=== PATIENT | male | born 1975 | race Caucasian/White ===

== ENCOUNTER 2021-04-07 20:14 | Emergency (ER) | payer OTHER ==
[2021-04-07 20:25] VITALS: BP 146/91
[2021-04-07] MEDS ORDERED: LIDOCAINE 1% 2 ML VIAL SUBQ STA (20:29)
--- NOTE | 2021-04-07 20:33 | ED Physician Documentation ---
PD HPI UPPER EXT INJURY - Stated complaint Stated Complaint: LT FINGER LAC - Chief complaint Chief Complaint: Laceration - History obtained from History obtained from: Patient - History of Present Illness Location: Left Type of injury: Laceration Pain level max: 2 Pain level now: 1 Improved by: Rest, Dressing (pressure) Worsened by: Moving Associated symptoms: No: Weakness, Numbness, Tingling, Swelling Recently seen: Not recently seen - Additonal information Additional information: 46-year-old male presents to the emergency department with a left index finger laceration. This occurred at home while washing dishes, a knife slipped and cut him in the left index finger. Tetanus is up-to-date. Patient is right-handed. Review of Systems Constitutional: denies: Fever PD PAST MEDICAL HISTORY - Past Medical History Past Medical History: No - Present Medications Home Medications: Ambulatory Orders Medication Instructions Recorded Confirmed Citalopram [CeleXA] 10 mg PO DAILY 04/07/21 04/07/21 amLODIPine [Norvasc] 5 mg PO DAILY PM 04/07/21 04/07/21 - Allergies Allergies/Adverse Reactions: Allergies Allergy/AdvReac Type Severity Reaction Status Date / Time No Known Drug Allergies Allergy Verified 04/07/21 20:25 PD ED PE NORMAL - Vitals Vital signs reviewed: Yes - General General: Alert and oriented X 3, No acute distress - Derm Derm: Warm and dry - Neuro Neuro: Alert and oriented X 3 PD ED PE EXPANDED - Extremities IGNACIA UE/Hands Visual: 1 - laceration (1cm, into fat. NVI. tendon intact, tested vs resistance) Results - Vitals Vitals: Vital Signs - 24 hr 04/07/21 20:21 Temperature 36.8 C Heart Rate 75 Respiratory 16 Rate Blood Pressure 146/91 H O2 Saturation 96 Oxygen O2 Source Room air Procedures - Laceration (location) L index finger Length in cm: 1 Wound type: Linear Neurovascular status: Sensory intact, Motor intact, Vascular intact Tendon involvement: Tendon intact (tested vs resistance) Anesthesia: Lidocaine 1% Wound preparation: Irrigated copiously NS Deep layer closure: # sutures - enter number (2) Skin layer closure: Nylon, Interrupted Other: Patient tolerated well, No complications, Neurovascular intact, Tetanus UTD PD MEDICAL DECISION MAKING - ED course Complexity details: considered differential, d/w patient ED course: 46-year-old male presents to the emergency department with left index finger laceration. This was repaired. Tolerated well. Tetanus up-to-date. Neurovascularly intact. Tendon intact. Patient counseled regarding signs and symptoms for which I believe and urgent re-evaluation would be necessary. Patient with good understanding of and agreement to plan and is comfortable going home at this time This document was made in part using voice recognition software. While efforts are made to proofread this document, sound alike and grammatical errors may occur. Departure - Departure Disposition: 01 Home, Self Care Clinical Impression: Finger laceration Qualifiers: Encounter type: initial encounter Finger: index finger Damage to nail status: without damage Foreign body presence: without foreign body Laterality: left Qualified Code(s): S61.211A - Laceration without foreign body of left index finger without damage to nail, initial encounter Condition: Good Instructions: ED Laceration Hand Follow-Up: SIS DUNCAN PA-C [Primary Care Provider] - Comments: Follow-up with your primary care provider in about 10 days for suture removal. Return if you notice redness, swelling or drainage from the room. Return if you worsen. Keep the wound clean Discharge Date/Time: 04/07/21 20:53
[2021-04-07] MEDS ORDERED: BACITRACIN ZINC OINT 1 PACKET TOP STA (20:47)
== END 2021-04-07 20:53 | disposition home or self-care (01) ==
LOC: ED 20:14
DX: S61.211A Laceration without foreign body of left index finger without damage to nail, initial encounter (principal); W26.0XXA Contact with knife, initial encounter; Y93.G1 Activity, food preparation and clean up; Y92.009 Unspecified place in unspecified non-institutional (private) residence as the place of occurrence of the external cause
CPT/HCPCS: 12041; 99281; 99282

== ENCOUNTER 2022-06-23 10:33 | Emergency (ER) | payer OTHER ==
--- NOTE | 2022-06-23 11:32 | ED Physician Documentation ---
PD HPI BACK PAIN - Stated complaint Stated Complaint: BACK PX - Chief complaint Chief Complaint: Trauma Ch/Bk - History obtained from History obtained from: Patient - History of Present Illness Timing - onset: How many days ago (3) Timing - duration: Days (3) Timing - details: Abrupt onset, Still present (he fell about 5 feet onto flat back, with pain thoraicic ribs. Was painful with movement, then had an abrupt severe pain with coughing today.) Location: Lower, Right Quality: Pain, Spasm, Sharp Associated symptoms: No: Fever, Weakness, Numbness Improves with: Rest Worsened by: Movement, Twisting Contributing factors: Trauma (fell onto flat back from about 5 feet.) Similar symptoms before: Has not had sx before Recently seen: Not recently seen Review of Systems Constitutional: denies: Fever, Chills Nose: denies: Rhinorrhea / runny nose, Congestion Throat: denies: Sore throat Cardiac: reports: Chest pain / pressure. denies: Palpitations Respiratory: denies: Dyspnea, Cough GI: denies: Abdominal Pain Musculoskeletal: denies: Neck pain Neurologic: denies: Altered mental status, Headache, Head injury PD PAST MEDICAL HISTORY - Past Medical History Past Medical History: Yes Cardiovascular: Hypertension Respiratory: None Neuro: None Endocrine/Autoimmune: None GI: None : None HEENT: None Psych: Post traumatic stress disorder Musculoskeletal: None Derm: None - Past Surgical History Past Surgical History: Yes Ortho: Arthroscopic surgery Derm: Other - Present Medications Home Medications: Ambulatory Orders Medication Instructions Recorded Confirmed amLODIPine [Norvasc] 5 mg PO DAILY PM 04/07/21 06/23/22 HYDROcod/ACETAM 5/325 [[place] 5/325] 1 ea PO Q6H PRN #15 tablet 06/23/22 Losartan Potassium 25 mg PO DAILY 06/23/22 06/23/22 Sertraline [Zoloft] 50 mg PO DAILY 06/23/22 06/23/22 methocarbamoL [Robaxin] 500 mg PO Q6H PRN #30 tablet 06/23/22 - Allergies Allergies/Adverse Reactions: Allergies Allergy/AdvReac Type Severity Reaction Status Date / Time No Known Drug Allergies Allergy Verified 06/23/22 10:45 - Social History Does the pt smoke?: No Smoking Status: Never smoker Does the pt drink ETOH?: Yes Does the pt have substance abuse?: No - Immunizations Immunizations are current?: Yes PD ED PE NORMAL - Vitals Vital signs reviewed: Yes - General General: Alert and oriented X 3, No acute distress, Well developed/nourished - HEENT HEENT: Atraumatic - Neck Neck: Supple, no meningeal sign, No bony TTP, No adenopathy - Cardiac Cardiac: RRR, No murmur - Respiratory Respiratory: Clear bilaterally, Other (tender focally right lower ribs mid scapular line. No deformity. ) - Abdomen Abdomen: Soft, Non tender - Back Back: No spinal TTP (just in right lateral ribs.) - Derm Derm: Normal color, Warm and dry Results - Vitals Vitals: Oxygen O2 Source Room air - Rads (name of study) chest CT Radiology: Prelim report reviewed (right ribs 9 and 10 fractures. No ptx. ), See rad report PD MEDICAL DECISION MAKING - ED course Complexity details: reviewed results, considered differential, d/w patient Departure - Departure Disposition: 01 Home, Self Care Clinical Impression: Fall, accidental Qualifiers: Encounter type: initial encounter Qualified Code(s): W19.XXXA - Unspecified fall, initial encounter Right rib fracture Qualifiers: Encounter type: initial encounter Rib fracture type: multiple ribs Fracture type: closed Qualified Code(s): S22.41XA - Multiple fractures of ribs, right side, initial encounter for closed fracture Back pain Qualifiers: Back pain location: thoracic back pain Chronicity: acute Back pain laterality: right Qualified Code(s): M54.6 - Pain in thoracic spine Condition: Stable Record reviewed to determine appropriate education?: Yes Instructions: ED Fx Rib Follow-Up: SIS DUNCAN PA-C [Primary Care Provider] - Prescriptions: HYDROcod/ACETAM 5/325 [[place] 5/325] 1 ea PO Q6H PRN #15 tablet PRN Reason: Pain methocarbamoL [Robaxin] 500 mg PO Q6H PRN #30 tablet PRN Reason: Spasms Comments: You do have broken ribs #9 and 10 on the right side. No pneumothorax. No obvious spine injury. This will decrease in pain after a few days with the initial inflammation and then at about a week and a half or so with the initial callus formation when the bone stopped moving. However will take about 4 weeks to heal fully. Use some anti-inflammatory such as ibuprofen 3 times daily with food. To that add Tylenol for pains. Also Robaxin if needed for spasms. To that add hydrocodone if needed for worse pain. This would likely need to be in the first week or so. I transmitted your prescriptions to [facility] pharmacy in [place]. My narcotic instructions I am prescribing a short course of narcotic pain medication for you. These are potentially dangerous and addictive medications that should be used carefully. These medications may constipate you. Take an [id number] stool softener such as docusate twice daily with plenty of water while taking these medications. If you go 24 hours without a bowel movement, take [id number] MiraLAX, per package instructions. Do not drink or drive while taking these medications. If you received narcotic or sedating medications while in the emergency department do not drive for 24 hours. Store this medication in a safe, secure place and out of reach of children. It is a violation of federal law to give or sell this medication to another person or to use in a manner other than prescribed. The ED will not refill narcotic prescriptions, including prescriptions lost or stolen. You can dispose of unwanted medications at the [facility]'s office or at several pharmacies such as [facility]. Activity as tolerated. Discharge Date/Time: 06/23/22 13:31
[2022-06-23] MEDS ORDERED: KETOROLAC 30 MG/ML VIAL IM STA (11:46)
[2022-06-23] MEDS ORDERED: ACETAMINOPHEN 325 MG TABLET PO STA (11:46)
[2022-06-23] MEDS ORDERED: methocarbamoL 500 MG TABLET PO STA (11:47)
[2022-06-23 12:16] VITALS: BP 144/93
--- NOTE | 2022-06-23 12:38 | CT Report ---
PROCEDURE: CHEST WO INDICATIONS: fall with landing back; pain right posterior ribs. TECHNIQUE: Noncontrast 1mm axial images were acquired from the pulmonary apices to the posterior costophrenic an gles. Axial 5 mm soft tissue kernel reconstructions were performed as well as 8 mm axial MIP and cor onal and sagittal 5 mm reformations. For radiation dose reduction, the following was used: automate d exposure control, adjustment of mA and/or kV according to patient size. COMPARISON: None FINDINGS: Image quality: Excellent. Lungs and pleura: Minimal right basilar contusion versus atelectasis. No pleural effusions or pneumot horax. Central and peripheral airways are patent and normal in caliber. Mediastinum: Heart size is normal. No pericardial effusion. No mediastinal adenopathy by size crit eria. Thoracic aorta and central pulmonary arteries are normal in size. Esophagus is normal in melissa sunni. No hiatal hernia. Bones and chest wall: Fractures of the posterior right ninth and 10th ribs. No suspicious bony lesion s. No vertebral body compression fractures. No axillary or supraclavicular adenopathy by size crite yomaira. Thyroid is unremarkable as visualized Abdomen: Visualized upper abdominal solid organs and bowel loops appear normal in the absence of con trast. IMPRESSION: 1. Nondisplaced fractures of the posterior right ninth and 10th ribs. 2. Minimal right basilar contusion versus atelectasis. 3. No evidence of pneumothorax. CLINICAL RECOMMENDATION STATEMENTS: In patients <35 years with an ITN detected on CT, MRI, or extrathyroidal ultrasound, the Committee re commends further evaluation with dedicated thyroid ultrasound if the nodule is "e1 cm and has no susp icious imaging features, and if the patient has normal life expectancy. In patients "e35 years with an ITN detected on CT, MRI, or extrathyroidal ultrasound, the Committee r ecommends further evaluation with dedicated thyroid ultrasound if the nodule is "e1.5 cm and has no s uspicious imaging features, and if the patient has normal life expectancy. (ACR, 2014) Reviewed by: Justino Landon MD on 06/23/2022 11:37 AM HAYLIE Approved by: Justino Landon MD on 06/23/2022 11:37 AM HAYLIE Station ID: [id number]
== END 2022-06-23 13:31 | disposition home or self-care (01) ==
LOC: ED 10:33
DX: S22.41XA Multiple fractures of ribs, right side, initial encounter for closed fracture (principal); M54.6 Pain in thoracic spine; W17.89XA Other fall from one level to another, initial encounter; I10 Essential (primary) hypertension
CPT/HCPCS: 71250; 96372; 99284; A9270